=== PATIENT | male | born 1935 | race Caucasian/White ===

== ENCOUNTER → 2016-09-07 | Outpatient (CLI) | payer MEDICARE | LOC: LAB.O 09:43 | PROVIDERS: ATTEND Internal Medicine Interventional Cardiology | DX: I48.91 Unspecified atrial fibrillation (principal); E78.5 Hyperlipidemia, unspecified; I10 Essential (primary) hypertension; I25.10 Atherosclerotic heart disease of native coronary artery without angina pectoris; Z01.810 Encounter for preprocedural cardiovascular examination ==

== ENCOUNTER → 2017-04-18 | Outpatient (CLI) | payer MEDICARE | END | disposition home or self-care (01) | LOC: GMAL 10:29 | PROVIDERS: ATTEND Family Medicine | DX: D51.3 Other dietary vitamin B12 deficiency anemia (principal); E55.9 Vitamin D deficiency, unspecified ==

== ENCOUNTER → 2017-11-14 | Outpatient (CLI) | payer MEDICARE | LOC: GMAL 12:28 | PROVIDERS: ATTEND Family Medicine | DX: D51.3 Other dietary vitamin B12 deficiency anemia (principal); E55.9 Vitamin D deficiency, unspecified ==

== ENCOUNTER → 2018-10-26 | Outpatient (CLI) | payer MEDICARE ==
--- NOTE | 2018-10-26 15:26 | CT ---
EXAM DESCRIPTION: CTA Abdomen: Computed Tomography. CLINICAL HISTORY: THORACIC AORTIC ANEURYSM COMPARISON: CT scan chest with contrast 07/08/2016. TECHNIQUE: CT angiography of the thoracic and abdominal aorta is performed during rapid bolus administration of IV contrast media. Three-dimensional volume-rendering imaging is reviewed along with 2.5 x 2.5 mm source images, and 2.0 mm coronal and sagittal reformats. Total Exam DLP: 968.88 mGy-cm. This exam was performed according to our departmental CT dose-optimization program which includes automated exposure control, adjustment of the mA and/or kV according to patient size and/or use of iterative reconstruction technique; to reduce radiation dose to as low as reasonably achievable (ALARA). FINDINGS: Ascending thoracic aorta: Diameter 3.3 cm with moderate atherosclerotic calcification. Stable since the prior study. No significant ulcerations. Mid Aortic arch: Diameter between the right innominate artery and left common carotid origin is 3.2 cm. Stable since the prior study. Approximately 50% diameter stenosis of the left common carotid ostium with atherosclerotic calcification and poststenotic dilation. Approximately 30% stenosis of the origin of the right innominate artery with poststenotic dilation. Distal aortic arch: Just distal to the origin of the left subclavian artery 2.8 cm. Stable since the prior study. Approximately 20% diameter narrowing. This is at the level of the T2-T3 disc space. Approximately 50% diameter stenosis of the origin of the left subclavian artery with minimal poststenotic dilation. Distal thoracic aorta: Diameter at the mid T9 vertebral body is 2.7 x 2.6 cm. Minimal atherosclerotic calcification. Stable since the prior study. Upper abdominal aorta: Mild atherosclerotic calcification. 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 Almost 2 cm high-grade stenosis of the origin of the celiac axis with branches to the common hepatic artery and splenic artery. The left gastric artery originates from the aorta at a slightly more proximal level with narrowing proximally but no significant stenosis. Approximately 60% stenosis of the origin of the SMA with poststenotic dilation. There is also a small ulceration at the level of the stenosis. Mid-abdominal aorta: Moderate atherosclerotic calcification. 25% diameter stenosis of the origin of the single left renal artery. Less than 20% diameter stenosis of the origin of the single right renal artery. Distal abdominal aorta: Moderate atherosclerotic calcification and luminal narrowing. Approximately 50% diameter stenosis of the origin of the RUPA with minimal poststenotic dilation. Left common iliac: 50% diameter stenosis of the proximal left common iliac artery with less narrowing distally along the posterior wall. No significant narrowing at the origin of the left internal iliac artery. Right common iliac: Approximately 75% diameter stenosis of the proximal right common iliac artery with poststenotic dilation Other: Bilateral pleural thickening and senescent changes in the lungs. Bibasilar chronic reticulations and atelectasis. Small layering gravelly gallstones in the dependent gallbladder. Minimal fatty infiltration of the liver. Small sliding hiatal hernia. Spondylosis of the lower thoracic and lumbar spine. Diverticulosis of the colon with no complications. Mild constipation. IMPRESSION: 1. No thoracic aortic aneurysm. Ectasia is stable since June 2016. 2. No abdominal aortic aneurysm. Varying degrees of stenosis of major branch vessels from the aorta. This includes high-grade stenosis of the proximal 2 cm of the hepatic-splenic arterial trunk. Separate origin of the left gastric artery. Please see above details. 3. Approximately 75% diameter stenosis of the origin of the right common iliac artery at the bifurcation of the aorta. 4. Small layering gallstones in the gallbladder. Electronically signed by: Wild Mishra MD 10/26/2018 3:22 PM MATCHER OPERATOR
== END ==
LOC: CT 10:00
PROVIDERS: ATTEND Family Medicine
DX: R07.89 Other chest pain (principal)

== ENCOUNTER 2018-11-03 08:36 | Emergency (ER) | payer MEDICARE ==
[2018-11-03 08:58] VITALS: TEMP 94.4
--- NOTE | 2018-11-03 09:08 | ED.PDOC ---
History of Present Illness - General Chief Complaint: General Stated Complaint: Bleeding from surgical incision Time Seen by Provider: 11/03/18 08:38 Source: patient Exam Limitations: no limitations - History of Present Illness Initial Comments: the patient is an 83-year-old male presenting to the emergency room secondary to bleeding from an excisional biopsy site to the right side of his neck. The patient apparently had a small mass removed approximately 8 days ago to the right side of his neck that was superficial. He woke up this morning with blood on his pillow from bleeding from the site. He does take Zaroxolyn. He was sleeping on that side. The stitches are exposed. There is a small 2 mm bruise or hemangioma at the center. No evidence of overt dehiscence. No evidence of extending cellulitis. No evidence of significant anemia.ithin a few minutes of arrival here the bleeding appears to have stopped with simple pressure. A small pressure dressing was applied directly over the site. We will monitor the patient for an hour or 2. Timing/Duration: 1-3 hours Severity: moderate Improving Factors: nothing Worsening Factors: nothing Associated Symptoms: denies symptoms Allergies/Adverse Reactions: Allergies NO KNOWN ALLERGY Allergy (Verified 11/03/18 09:02) Home Medications: Ambulatory Orders Allopurinol [Zyloprim] 300 mg PO DAILY 08/18/15 Aspirin 325 mg PO QD 08/18/15 Gemfibrozil 300 mg PO BID 08/18/15 Pravastatin Sodium 40 mg PO BID 08/18/15 Docusate Sodium [Colace Cap] 100 mg PO DAILY #30 cap 08/31/15 Allopurinol [Zyloprim] 300 mg PO DAILY 11/03/18 Aspirin (Buffered) 325 mg [Bufferin 325 mg] 325 mg PO DAILY 11/03/18 Carvedilol 25 mg PO BID 11/03/18 Cyanocobalamin [Vitamin B-12] 1,000 mcg PO DAILY 11/03/18 Multiple Vitamins W/ Minerals [Vitamin D3 Complete] 1 tab PO DAILY 11/03/18 Warfarin Sodium 2 mg PO DAILY 11/03/18 Review of Systems - Review of Systems Constitutional: States: no symptoms reported EENTM: States: no symptoms reported Respiratory: States: no symptoms reported Cardiology: States: no symptoms reported Gastrointestinal/Abdominal: States: no symptoms reported Genitourinary: States: no symptoms reported Musculoskeletal: States: no symptoms reported Skin: States: see HPI Neurological: States: no symptoms reported Endocrine: States: no symptoms reported All other Systems: No Change from Baseline Past Medical History (General) - Patient Medical History Hx Stroke: No Hx Cardiac Disorders: Yes Hx Congestive Heart Failure: No Hx Hypertension: Yes Hx Diabetes: No Hx MRSA: No Surgical History: coronary bypass surgery, other - Vaccination History Hx Tetanus, Diphtheria Vaccination: - Unk Hx Influenza Vaccination: Yes Hx Pneumococcal Vaccination: Yes Immunizations Up to Date: Yes - Social History Hx Tobacco Use: Yes Hx Alcohol Use: Yes - Seldom Hx Substance Use: No Hx Substance Use Treatment: No Hx Depression: No - Female History Patient is a Female of Child Bearing Age (10 -59 yrs old): No Family Medical History - Family History Father Family History: Unknown Living Status: Unknown Physical Exam - Physical Exam General Appearance: Alert, Comfortable, No apparent distress Eye Exam: bilateral normal Ears, Nose, Throat: hearing grossly normal, normal ENT inspection Neck: full range of motion, supple, other - see history of present illness Respiratory: no respiratory distress, no accessory muscle use Cardiovascular/Chest: normal peripheral pulses, no edema Peripheral Pulses: radial,right: 2+, radial,left: 2+, dorsalis pedis,right: 2+, dorsalis pedis,left: 2+ Gastrointestinal/Abdominal: non tender, soft Rectal Exam: deferred Back Exam: no CVA tenderness, no vertebral tenderness Extremity: non-tender, normal inspection, no pedal edema, normal capillary refill 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 Bleeding has stopped with pressure. The patient is to hold his xarelto for the next 2 days. I would encourage him to keep the incision covered with a large Band-Aid at night to prevent snagging the stitches. No evidence of infection at this time. No evidence of anemia. ER warnings were given for any worsening. No additional stitching was required. keep scheduled follow-up for suture removal. Departure - Departure Clinical Impression: Postoperative bleeding from incision Disposition: Discharge to Home or Self Care Condition: Fair Departure Forms: ED Discharge - Pt. Copy, Patient Portal Self Enrollment Diet: regular diet Activity: increase activity as tolerated Referrals: Anastacio Ayers III, MD [Primary Care Provider] - 1-2 Weeks Home Medications: Ambulatory Orders Allopurinol [Zyloprim] 300 mg PO DAILY 08/18/15 Aspirin 325 mg PO QD 08/18/15 Gemfibrozil 300 mg PO BID 08/18/15 Pravastatin Sodium 40 mg PO BID 08/18/15 Docusate Sodium [Colace Cap] 100 mg PO DAILY #30 cap 08/31/15 Allopurinol [Zyloprim] 300 mg PO DAILY 11/03/18 Aspirin (Buffered) 325 mg [Bufferin 325 mg] 325 mg PO DAILY 11/03/18 Carvedilol 25 mg PO BID 11/03/18 Cyanocobalamin [Vitamin B-12] 1,000 mcg PO DAILY 11/03/18 Multiple Vitamins W/ Minerals [Vitamin D3 Complete] 1 tab PO DAILY 11/03/18 Warfarin Sodium 2 mg PO DAILY 11/03/18 Additional Instructions: the patient is an 83-year-old male presenting to the emergency room secondary to bleeding from his procedural site to the right side of his neck. Bleeding has stopped with pressure. The patient is to hold his xarelto for the next 2 days. I would encourage him to keep the incision covered with a large Band-Aid at night to prevent snagging the stitches. No evidence of infection at this time. No evidence of anemia. ER warnings were given for any worsening. No additional stitching was required. keep scheduled follow-up for suture removal.
[2018-11-03 10:00] VITALS: O2SAT 95
[2018-11-03 10:30] VITALS: BP 155/94
== END 2018-11-03 10:30 | disposition home or self-care (01) ==
LOC: ER 08:36
DX: L76.22 Postprocedural hemorrhage of skin and subcutaneous tissue following other procedure (principal); Y83.8 Other surgical procedures as the cause of abnormal reaction of the patient, or of later complication, without mention of misadventure at the time of the procedure; I51.9 Heart disease, unspecified; I10 Essential (primary) hypertension; Z95.1 Presence of aortocoronary bypass graft; Z79.899 Other long term (current) drug therapy; Z79.82 Long term (current) use of aspirin; Z79.01 Long term (current) use of anticoagulants; Z87.891 Personal history of nicotine dependence

== ENCOUNTER → 2019-05-21 | Outpatient (CLI) | payer MEDICARE | LOC: GMAL 11:28 | PROVIDERS: ATTEND Family Medicine | DX: D51.3 Other dietary vitamin B12 deficiency anemia (principal); E55.9 Vitamin D deficiency, unspecified; I10 Essential (primary) hypertension; E78.49 Other hyperlipidemia; I48.2 Chronic atrial fibrillation ==